=== PATIENT | male | born 1945 | race Hispanic/Latino ===

== ENCOUNTER 2018-04-30 12:37 | Outpatient (CLI) | payer MEDICARE, OTHER ==
--- NOTE | 2018-04-30 14:09 | MRI ---
NONCONTRAST MRI LUMBAR SPINE: DATE: 04/30/18. HISTORY: Radiculopathy of lumbar region. The patient complains of low back pain with bilateral leg weakness f or 3-4 months, left greater than right. COMPARISON: None available. FINDINGS: The retroperitoneal structures demonstrate a grossly normal nonenhanced MRI appearance. The conus medullaris is normal in appearance and terminates at the L1-2 level. Multilevel degenerative changes are seen in the lumbar spine. There are end plate degenerative tsang es at L3-4 and L5-S1 levels. There is a small focal area of increased T1 and T2 weighted signal inte nsity in the L1-2 vertebral body which may represent a focal area of fat versus a small hemangioma. L1-2 level: There is mild loss of intervertebral disk height. There is a broad-based disk-osteophyt e complex. Mild facet hypertrophic changes are present. There is mild narrowing of the central spin al canal. The neural foramina are patent. L2-3 level: There is loss of intervertebral disk height. There is a broad-based disk-osteophyte com plex present. Facet hypertrophic changes are noted, greater on the left. Findings result in mild na rrowing of the central spinal canal and left lateral recess. There is a greater degree of central ca nal narrowing at this level compared to the L1-2 level. There is no significant neural foraminal franchesca rowing. L3-4 level: There is loss of intervertebral disk height with end plate degenerative changes. A broa d-based disk-osteophyte complex is present. Facet hypertrophic changes are noted. Fluid signal inte nsity is seen within the right facet joint. There is mild narrowing of the central spinal canal. Th ere is a small left paracentral disk protrusion. This does encroach on the traversing left L4 nerve root. The right neural foramen is patent, but there is mild left-sided neural foraminal narrowing. L4-5 level: There is a broad-based disk-osteophyte complex with right paracentral disk protrusion. This does result in mass effect on the anterior aspect of the thecal sac, greater on the right, and t here is mild posterior displacement of the traversing right L5 nerve root. Mild facet degenerative c hanges are present with fluid signal intensity seen in the facet joints. There is mild left and mode rate to severe right-sided neural foraminal narrowing. L5-S1 level: There is loss of intervertebral disk height. There is a broad-based disk-osteophyte co mplex and mild facet hypertrophic changes. There is no significant narrowing of the central spinal c anal, but there is mild bilateral neural foraminal narrowing greater on the right. There is mild right convex scoliosis of the lumbar spine. IMPRESSION: 1. Multilevel degenerative changes in the lumbar spine. 2. Mild right convex scoliosis lumbar spine. POS: SHERRY
== END 2018-04-30 12:38 | disposition home or self-care (01) ==
LOC: SCSMRI 12:37
PROVIDERS: ATTEND Internal Medicine
DX: M47.26 Other spondylosis with radiculopathy, lumbar region (principal); M48.061 Spinal stenosis, lumbar region without neurogenic claudication; M41.9 Scoliosis, unspecified
CPT/HCPCS: 72148